=== PATIENT | female | born 1950 | race Two or more races ===

== ENCOUNTER 2018-04-18 10:08 | Outpatient (CLI) | payer OTHER ==
[~2018-04-18 10:08] MED LIST: BUDEPRION XL300 MG; CELEBREX PO; CELEBREX100 MG PO; COZAAR50 MG PO; HYDROCHLOROTHIA25 MG PO; PAXIL CR25 MG
== END 2018-04-18 10:15 | disposition home or self-care (01) ==
LOC: LAB 10:08
DX: I10 Essential (primary) hypertension (principal); E11.9 Type 2 diabetes mellitus without complications; E03.8 Other specified hypothyroidism; E78.2 Mixed hyperlipidemia; K92.1 Melena; D64.0 Hereditary sideroblastic anemia; M81.0 Age-related osteoporosis without current pathological fracture

== ENCOUNTER 2018-08-29 13:11 | Outpatient (CLI) | payer OTHER | END 2018-08-29 13:17 | disposition home or self-care (01) | LOC: LAB 13:11 | DX: R10.30 Lower abdominal pain, unspecified (principal); Z51.81 Encounter for therapeutic drug level monitoring ==

== ENCOUNTER 2018-09-06 08:18 | Outpatient (CLI) | payer OTHER | END 2018-09-06 08:32 | disposition home or self-care (01) | LOC: TOM 08:18 | DX: R10.30 Lower abdominal pain, unspecified (principal); Z86.010 Personal history of colon polyps | CPT/HCPCS: 74178; Q9965 ==

== ENCOUNTER 2018-09-19 07:39 | Outpatient (CLI) | payer OTHER | END 2018-09-19 07:48 | disposition home or self-care (01) | LOC: MRI 07:39 | DX: Z86.010 Personal history of colon polyps (principal); K86.2 Cyst of pancreas | CPT/HCPCS: 74181 ==

== ENCOUNTER 2018-09-27 07:25 | Outpatient (CLI) | payer OTHER | END 2018-09-27 07:29 | disposition home or self-care (01) | LOC: SONOGRAMA 07:25 → MAMO-SONO 07:45 | DX: K86.2 Cyst of pancreas (principal); K80.20 Calculus of gallbladder without cholecystitis without obstruction; Z86.010 Personal history of colon polyps ==

== ENCOUNTER 2018-10-05 11:39 | Outpatient (CLI) | payer OTHER | END 2018-10-05 11:46 | disposition home or self-care (01) | LOC: LAB 11:39 | DX: Z86.010 Personal history of colon polyps (principal); K80.20 Calculus of gallbladder without cholecystitis without obstruction; K86.89 Other specified diseases of pancreas ==

== ENCOUNTER 2018-11-17 11:20 | Outpatient (CLI) | payer OTHER | END 2018-11-17 11:31 | disposition home or self-care (01) | LOC: LAB 11:20 | DX: I10 Essential (primary) hypertension (principal); E11.9 Type 2 diabetes mellitus without complications; E03.8 Other specified hypothyroidism; E78.2 Mixed hyperlipidemia; K21.9 Gastro-esophageal reflux disease without esophagitis; D64.0 Hereditary sideroblastic anemia ==

== ENCOUNTER 2018-12-21 11:01 | Outpatient (CLI) | payer OTHER | END 2018-12-21 11:04 | disposition home or self-care (01) | LOC: SONOGRAMA 11:01 | DX: M12.9 Arthropathy, unspecified (principal); M19.90 Unspecified osteoarthritis, unspecified site ==

== ENCOUNTER 2019-01-04 08:54 | Outpatient (CLI) | payer OTHER | END 2019-01-04 15:00 | disposition home or self-care (01) | LOC: LAB 08:54 | DX: E78.2 Mixed hyperlipidemia (principal); E11.9 Type 2 diabetes mellitus without complications ==

== ENCOUNTER 2019-02-02 08:21 | Outpatient (CLI) | payer OTHER | END 2019-02-02 08:28 | disposition home or self-care (01) | LOC: SONOGRAMA 08:21 | DX: K76.2 Central hemorrhagic necrosis of liver (principal); Z86.010 Personal history of colon polyps; R93.3 Abnormal findings on diagnostic imaging of other parts of digestive tract ==

== ENCOUNTER 2019-02-21 11:18 | Outpatient (CLI) | payer OTHER ==
[~2019-02-21] VITALS: Ht 162.6 cm; Wt 83.9 kg
== END 2019-02-21 11:35 | disposition home or self-care (01) ==
LOC: OFIC 805 11:18
DX: J30.89 Other allergic rhinitis (principal); K21.0 Gastro-esophageal reflux disease with esophagitis; R09.81 Nasal congestion; H61.23 Impacted cerumen, bilateral

== ENCOUNTER 2019-03-12 10:12 | Outpatient (CLI) | payer OTHER ==
[~2019-03-12] VITALS: Ht 152.4 cm; Wt 83.9 kg
== END 2019-03-12 10:30 | disposition home or self-care (01) ==
LOC: OFIC 805 10:12
DX: R42 Dizziness and giddiness (principal); H91.90 Unspecified hearing loss, unspecified ear

== ENCOUNTER 2019-04-09 05:00 | Day surgery (SDC) | payer OTHER ==
[~2019-04-09 05:00] MED LIST changes: +MULTIPLE VITAM1 EACH PO; +NEXIUM40 M1 PO
== END 2019-04-09 12:45 | disposition home or self-care (01) ==
LOC: CIR.AMB 05:00 → EDSTATUS 07:15 → SURG 07:15 → CIR.AMB 12:45
DX: K80.10 Calculus of gallbladder with chronic cholecystitis without obstruction (principal)

== ENCOUNTER 2019-05-21 09:23 | Outpatient (CLI) | payer OTHER | END 2019-05-21 09:34 | disposition home or self-care (01) | LOC: TOM 09:23 | DX: R10.84 Generalized abdominal pain (principal) ==

== ENCOUNTER → 2019-06-18 14:29 | Outpatient (CLI) | payer OTHER | END | disposition home or self-care (01) | LOC: LAB 14:29 | DX: K86.2 Cyst of pancreas (principal) ==

== ENCOUNTER 2019-07-05 06:00 | Outpatient (CLI) | payer OTHER | END 2019-07-05 07:57 | disposition home or self-care (01) | LOC: MRI 06:00 | DX: K86.2 Cyst of pancreas (principal); K30 Functional dyspepsia | CPT/HCPCS: 74183; A9575 ==

== ENCOUNTER 2019-07-05 10:38 | Outpatient (CLI) | payer OTHER ==
[~2019-07-05] VITALS: Ht 152.4 cm; Wt 83.9 kg
== END 2019-07-05 12:54 | disposition home or self-care (01) ==
LOC: OFIC 805 10:38
DX: H90.3 Sensorineural hearing loss, bilateral (principal); R42 Dizziness and giddiness; R09.81 Nasal congestion; K21.0 Gastro-esophageal reflux disease with esophagitis; J30.89 Other allergic rhinitis

== ENCOUNTER 2020-04-09 08:52 | Outpatient (CLI) | payer OTHER | END 2020-04-09 08:56 | disposition home or self-care (01) | LOC: TOM 08:52 | PROVIDERS: ATTEND Internal Medicine Gastroenterology | DX: K86.2 Cyst of pancreas (principal); R10.10 Upper abdominal pain, unspecified | CPT/HCPCS: 74177; Q9965 ==

== ENCOUNTER → 2020-04-10 12:07 | Outpatient (CLI) | payer OTHER | END | disposition home or self-care (01) | LOC: LAB 12:07 | PROVIDERS: ATTEND Radiology Diagnostic Radiology | DX: N20.0 Calculus of kidney (principal) ==

== ENCOUNTER 2020-05-13 11:08 | Outpatient (CLI) | payer OTHER | END 2020-05-13 11:41 | disposition home or self-care (01) | LOC: LAB 11:08 | PROVIDERS: ATTEND Internal Medicine Cardiovascular Disease | DX: J11.1 Influenza due to unidentified influenza virus with other respiratory manifestations (principal); D64.0 Hereditary sideroblastic anemia; R05 Cough; R06.2 Wheezing; R50.9 Fever, unspecified ==

== ENCOUNTER 2020-06-08 11:48 | Outpatient (CLI) | payer OTHER | END 2020-06-08 11:51 | disposition home or self-care (01) | LOC: LAB 11:48 | DX: Z20.828 Contact with and (suspected) exposure to other viral communicable diseases (principal); Z03.818 Encounter for observation for suspected exposure to other biological agents ruled out ==

== ENCOUNTER → 2020-07-10 11:25 | Outpatient (CLI) | payer OTHER | END | disposition home or self-care (01) | LOC: LAB 11:25 | DX: Z20.828 Contact with and (suspected) exposure to other viral communicable diseases (principal) ==

== ENCOUNTER 2020-07-28 11:42 | Outpatient (CLI) | payer OTHER | END 2020-07-28 13:58 | disposition home or self-care (01) | LOC: LAB 11:42 | PROVIDERS: ATTEND Radiology Diagnostic Radiology | DX: N20.0 Calculus of kidney (principal); Z03.818 Encounter for observation for suspected exposure to other biological agents ruled out ==

== ENCOUNTER 2020-08-04 08:29 | Outpatient (CLI) | payer OTHER | END 2020-08-04 08:39 | disposition home or self-care (01) | LOC: MRI 08:29 | PROVIDERS: ATTEND Specialist | DX: K86.2 Cyst of pancreas (principal) | CPT/HCPCS: 74181 ==

== ENCOUNTER → 2020-09-22 10:28 | Outpatient (CLI) | payer OTHER | END | disposition home or self-care (01) | LOC: LAB 10:28 | PROVIDERS: ATTEND Internal Medicine Cardiovascular Disease | DX: I10 Essential (primary) hypertension (principal); Z03.818 Encounter for observation for suspected exposure to other biological agents ruled out; E11.9 Type 2 diabetes mellitus without complications; E03.8 Other specified hypothyroidism; E78.2 Mixed hyperlipidemia; Z12.11 Encounter for screening for malignant neoplasm of colon; E55.9 Vitamin D deficiency, unspecified ==

== ENCOUNTER → 2020-09-29 15:09 | Outpatient (CLI) | payer OTHER | END | disposition home or self-care (01) | LOC: LAB 15:09 | PROVIDERS: ATTEND Obstetrics & Gynecology | DX: N30.00 Acute cystitis without hematuria (principal) ==

== ENCOUNTER 2020-10-19 13:12 | Outpatient (CLI) | payer OTHER | END 2020-10-19 15:00 | disposition home or self-care (01) | LOC: LAB 13:12 | DX: Z03.818 Encounter for observation for suspected exposure to other biological agents ruled out (principal) ==

== ENCOUNTER 2021-01-25 12:44 | Emergency (ER) | payer OTHER ==
[~2021-01-25] VITALS: Ht 162.6 cm; Wt 83.9 kg
[2021-01-25] MEDS ORDERED: INDERAL XL80 MG (13:30)
[2021-01-25] MEDS ORDERED: AMOX-CLAV 875-1 EACH PO (15:23)
[2021-01-25] MEDS ORDERED: INTESTINEX680 M1 PO (15:23)
[2021-01-25] MEDS ORDERED: MUPIROCIN22 GM TOP (15:23)
[2021-01-25] MEDS ORDERED: DICLOFENAC POTA50 MG PO (15:23)
== END 2021-01-25 15:33 | disposition home or self-care (01) ==
LOC: ER 12:44
DX: S61.250A Open bite of right index finger without damage to nail, initial encounter (principal); S61.252A Open bite of right middle finger without damage to nail, initial encounter; W54.0XXA Bitten by dog, initial encounter; Y93.89 Activity, other specified; Y92.89 Other specified places as the place of occurrence of the external cause; Y99.8 Other external cause status

== ENCOUNTER 2021-02-08 09:43 | Outpatient (CLI) | payer OTHER ==
[~2021-02-08 09:43] MED LIST changes: +AMOX-CLAV 875-1 EACH PO; +DICLOFENAC POTA50 MG PO; +INDERAL XL80 MG; +INTESTINEX680 M1 PO; +MUPIROCIN22 GM TOP
== END 2021-02-08 09:48 | disposition home or self-care (01) ==
LOC: LAB 09:43
PROVIDERS: ATTEND Internal Medicine Cardiovascular Disease
DX: I10 Essential (primary) hypertension (principal); E11.9 Type 2 diabetes mellitus without complications; E03.8 Other specified hypothyroidism; E78.2 Mixed hyperlipidemia; Z12.11 Encounter for screening for malignant neoplasm of colon; E55.9 Vitamin D deficiency, unspecified

== ENCOUNTER → 2021-05-19 08:17 | Outpatient (CLI) | payer OTHER | END | disposition home or self-care (01) | LOC: LAB 08:17 | PROVIDERS: ATTEND Internal Medicine Cardiovascular Disease | DX: M46.47 Discitis, unspecified, lumbosacral region (principal); I10 Essential (primary) hypertension; E03.8 Other specified hypothyroidism; E11.9 Type 2 diabetes mellitus without complications; E78.2 Mixed hyperlipidemia ==

== ENCOUNTER 2021-10-28 14:08 | Outpatient (CLI) | payer OTHER | END 2021-10-28 14:15 | disposition home or self-care (01) | LOC: RAD 14:08 | PROVIDERS: ATTEND Physical Medicine & Rehabilitation | DX: M54.2 Cervicalgia (principal); M16.11 Unilateral primary osteoarthritis, right hip; M70.61 Trochanteric bursitis, right hip ==

== ENCOUNTER 2021-11-03 11:06 | Outpatient (CLI) | payer OTHER | END 2021-11-03 11:08 | disposition home or self-care (01) | LOC: LAB 11:06 | PROVIDERS: ATTEND Internal Medicine Cardiovascular Disease | DX: I10 Essential (primary) hypertension (principal); E11.9 Type 2 diabetes mellitus without complications; E03.8 Other specified hypothyroidism; E78.2 Mixed hyperlipidemia ==

== ENCOUNTER 2022-02-16 09:11 | Outpatient (CLI) | payer OTHER | END 2022-02-16 09:13 | disposition home or self-care (01) | LOC: LAB 09:11 | PROVIDERS: ATTEND Internal Medicine Cardiovascular Disease | DX: E11.9 Type 2 diabetes mellitus without complications (principal); E78.2 Mixed hyperlipidemia ==

== ENCOUNTER 2022-02-17 08:24 | Outpatient (CLI) | payer OTHER | END 2022-02-17 08:30 | disposition home or self-care (01) | LOC: MAMO-SONO 08:24 → TOM 14:53 → RAD 14:54 | PROVIDERS: ATTEND Internal Medicine Cardiovascular Disease | DX: K86.2 Cyst of pancreas (principal); Z86.010 Personal history of colon polyps; K57.30 Diverticulosis of large intestine without perforation or abscess without bleeding | CPT/HCPCS: 74177; Q9965 ==

== ENCOUNTER → 2022-03-08 10:49 | Outpatient (CLI) | payer OTHER | END | disposition home or self-care (01) | LOC: NUCLEAR 10:30 | PROVIDERS: ATTEND Internal Medicine Cardiovascular Disease | DX: M81.0 Age-related osteoporosis without current pathological fracture (principal) ==

== ENCOUNTER 2022-03-08 13:51 | Outpatient (CLI) | payer OTHER | END 2022-03-08 13:56 | disposition home or self-care (01) | LOC: MAMO-SONO 13:51 | PROVIDERS: ATTEND Internal Medicine Cardiovascular Disease | DX: Z12.31 Encounter for screening mammogram for malignant neoplasm of breast (principal); N63.11 Unspecified lump in the right breast, upper outer quadrant ==

== ENCOUNTER 2022-08-15 12:15 | Outpatient (CLI) | payer OTHER | END 2022-08-15 12:25 | disposition home or self-care (01) | LOC: LAB 12:15 | PROVIDERS: ATTEND Internal Medicine Cardiovascular Disease | DX: J11.1 Influenza due to unidentified influenza virus with other respiratory manifestations (principal); A49.3 Mycoplasma infection, unspecified site; Z20.822 Contact with and (suspected) exposure to COVID-19 ==

== ENCOUNTER 2023-08-17 12:31 | Outpatient (CLI) | payer OTHER | END 2023-08-17 12:49 | disposition home or self-care (01) | LOC: MAMO-SONO 12:31 | PROVIDERS: ATTEND Radiology Diagnostic Radiology | DX: N60.11 Diffuse cystic mastopathy of right breast (principal); Z12.31 Encounter for screening mammogram for malignant neoplasm of breast ==

== ENCOUNTER 2023-08-24 08:45 | Outpatient (CLI) | payer OTHER | END 2023-08-24 08:57 | disposition home or self-care (01) | LOC: TOM 08:45 | PROVIDERS: ATTEND Internal Medicine Cardiovascular Disease | DX: K86.2 Cyst of pancreas (principal); M54.6 Pain in thoracic spine; M54.59 Other low back pain; M77.30 Calcaneal spur, unspecified foot | CPT/HCPCS: 72070; 72100; 73620; 74160; Q9965 ==

== ENCOUNTER 2024-01-02 12:21 | Outpatient (CLI) | payer OTHER | END 2024-01-02 12:25 | disposition home or self-care (01) | LOC: RAD 12:21 | PROVIDERS: ATTEND Physical Medicine & Rehabilitation | DX: M25.571 Pain in right ankle and joints of right foot (principal); M79.671 Pain in right foot ==

== ENCOUNTER 2024-07-29 08:57 | Outpatient (CLI) | payer OTHER | END 2024-07-29 09:04 | disposition home or self-care (01) | LOC: TOM 08:57 | PROVIDERS: ATTEND Internal Medicine Cardiovascular Disease | DX: K86.2 Cyst of pancreas (principal) | CPT/HCPCS: 74177; Q9965 ==

== ENCOUNTER 2024-08-21 09:50 | Outpatient (CLI) | payer OTHER | END 2024-08-21 09:58 | disposition home or self-care (01) | LOC: MAMO-SONO 09:50 | PROVIDERS: ATTEND Surgery | DX: N60.11 Diffuse cystic mastopathy of right breast (principal); N60.12 Diffuse cystic mastopathy of left breast; Z12.31 Encounter for screening mammogram for malignant neoplasm of breast ==